=== PATIENT | male | born 1995 | race African-American/Black ===

== ENCOUNTER 2021-04-08 17:50 | Emergency (ER) | payer BC ==
[2021-04-08] MEDS ORDERED: Aspirin 81 MG Tab.Chew PO ONE (17:57)
[2021-04-08 18:58] VITALS: BP 128/69; PULSE 102
[2021-04-08 19:06] LABS: CORONAVIRUS COVID-19 NAA NEGATIVE (NEGATIVE)
[2021-04-08 19:29] LABS: ANION GAP 13.9 mEq/L (7-13); CHLORIDE,CL 103 mmol/L (98-107); SODIUM,NA 140 mmol/L (136-145)
== END 2021-04-08 20:00 | disposition home or self-care (01) ==
LOC: DL.ED 17:50
DX: R07.89 Other chest pain (principal); J45.909 Unspecified asthma, uncomplicated; Z91.048 Other nonmedicinal substance allergy status; Z20.822 Contact with and (suspected) exposure to COVID-19
CPT/HCPCS: 0240U; 36415; 71045; 80053; 83605; 84484; 85025; 85379; 93005; 99285; A9270

== ENCOUNTER 2022-10-17 13:48 | Emergency (ER) | payer SELFPAY | END 2022-10-17 14:10 | disposition left against medical advice (07) | LOC: DL.ED 13:48 | DX: Z53.21 Procedure and treatment not carried out due to patient leaving prior to being seen by health care provider (principal) ==